=== PATIENT | female | born 1965 | race Caucasian/White ===

== ENCOUNTER 2017-01-06 13:48 | Emergency (ER) | payer OTHER ==
[~2017-01-06] VITALS: Ht 154.9 cm; Wt 103.2 kg
[~2017-01-06 13:48] MED LIST: ASPIR 8181 M1 PO; ASPIRIN81 M2 PO; AUGMENTIN875 MG PO; BACTRIM,SEPT1 TABLET PO; COREG25 M1 PO; Coreg PO; ENDOCET 5-3251 EACH PO; Ecotrin PO; FIORICET 50-301 EACH PO; GABAPENTIN600 MG PO; GLUCOPHAGE500 MG PO; IMDUR30 MG PO; KEFLEX500 MG PO; LANTUS 10100 UNITS/ SC; LANTUS 3 M100 UNITS1 SC; LEVEMIR FL100 UNIT/1 SC; LEXAPRO20 MG PO; LIPITOR40 MG PO; LISINOPRIL5 MG PO; LOTENSIN40 MG PO; METFORMIN HCL500 M1 PO; MS CONTIN,ORAMO60 MG PO; NEURONTIN300 MG PO; NEURONTIN600 MG PO; NORVASC10 MG PO; NOVOLOG PE100 UNITS/ SC; Neurontin PO; OMEPRAZOLE40 M1 PO; PERCOCET 5/31 TABLET PO; PLAVIX75 MG PO; PROZAC40 MG PO; TOPAMAX25 MG PO; TRICOR145 MG PO; ULTRAM50 MG PO; ZOCOR40 MG PO; ZOFRAN ODT4 MG PO
[2017-01-06 15:34] LABS: ADD MIUA? YES; BILIRUBIN NEGATIVE; BLOOD NEGATIVE; COLOR YELLOW ((YELLOW)); GLUCOSE (STRIP) NEGATIVE; KETONES NEGATIVE; LEUKOCYTES SMALL; NITRITE NEGATIVE; PROTEIN (STRIP) 100; SPECIFIC GRAVITY 1.016 (1.000-1.030); UROBILINOGEN 0.2 MG/DL (0.2-1.0)
[2017-01-06 15:39] LABS: BACTERIA RARE /HPF; EPITHELIAL CELLS 1+ /HPF; MUCUS TRACE /LPF; RED BLOOD CELLS 0-5 /HPF (0-5); UCUL ADDED? NO
[2017-01-06 16:02] LABS: HEMATOCRIT 29.3 % (36.0-46.0); MCH 27.1 PG (29.0-34.0); MCHC 32.4 G/DL (30.0-36.0); MCV 83.7 FL (83-99); MEAN PLAT.VOLUME 11.3 uM^3 (9.5-12.4); PLATELET COUNT 308 K/uL (156-360); RBC DIS.WIDTH-CV 13.3 % (11.8-14.6); RBC DIS.WIDTH-SD 40.5 % (39-53); WHITE BLOOD COUNT 7.7 K/uL (4.1-10.2)
[2017-01-06 16:18] LABS: CHLORIDE 102 mEq/L (99-109); POTASSIUM 3.7 mEq/L (3.7-5.4); SODIUM 138 mEq/L (136-147)
[2017-01-06 16:20] LABS: GLUCOSE 90 mg/dL (70-99)
[2017-01-06 16:21] LABS: ANION GAP 10 MEQ/L (2-14)
[2017-01-06 16:22] LABS: TOTAL BILIRUBIN 0.3 mg/dL (0.0-1.0)
[2017-01-06 16:23] LABS: ALKALINE PHOSPHATASE 75 IU/L (3-129)
[2017-01-06 16:24] LABS: GFR ESTIMATE (CALCULATED) 46 mL/min/
[2017-01-06 16:25] LABS: UREA NITROGEN (BUN) 15 mg/dL (9-23)
[2017-01-06 16:29] LABS: LIPASE 7 U/L (1.0-51.0)
[2017-01-06 16:32] LABS: QUANTITATIVE HCG < 4.0 MIU/ML
[2017-01-06] MEDS ORDERED: TORADOL10 MG PO (16:56)
[2017-01-06] MEDS ORDERED: KEFLEX500 MG PO (16:56)
[2017-01-06] MEDS ORDERED: BENTYL20 MG PO (16:56)
[2017-01-06 17:37] VITALS: BP 154/79
== END 2017-01-06 17:38 | disposition home or self-care (01) ==
LOC: EME 13:48
DX: N39.0 Urinary tract infection, site not specified (principal); R10.11 Right upper quadrant pain; Z98.2 Presence of cerebrospinal fluid drainage device; E11.9 Type 2 diabetes mellitus without complications; I10 Essential (primary) hypertension; M79.7 Fibromyalgia; I25.2 Old myocardial infarction; K21.9 Gastro-esophageal reflux disease without esophagitis; Z86.73 Personal history of transient ischemic attack (TIA), and cerebral infarction without residual deficits; Z79.4 Long term (current) use of insulin; Z79.84 Long term (current) use of oral hypoglycemic drugs; Z79.82 Long term (current) use of aspirin; Z79.899 Other long term (current) drug therapy
CPT/HCPCS: 80053; 81003; 83690; 84702; 85027; 99281; 99284; J3010